=== PATIENT | male | born 1995 | race Caucasian/White ===

== ENCOUNTER 2017-10-20 12:46 | Emergency (ER) | payer SELFPAY ==
[2017-10-20] MEDS: IBUPROFEN 600 MG TAB PO (13:44)
== END 2017-10-20 14:25 | disposition home or self-care (01) ==
LOC: FTE 12:46
DX: H60.331 Swimmer's ear, right ear (principal); R40.2412 Glasgow coma scale score 13-15, at arrival to emergency department
CPT/HCPCS: 99283